=== PATIENT | male | born 1950 | race Caucasian/White ===

== ENCOUNTER 2020-12-19 16:20 | Outpatient (CLI) | payer OTHER | END 2020-12-19 16:21 | disposition short-term general hospital (02) | LOC: EMS 16:20 | DX: S89.91XA Unspecified injury of right lower leg, initial encounter (principal); W21.89XA Striking against or struck by other sports equipment, initial encounter; Y93.89 Activity, other specified; Y92.89 Other specified places as the place of occurrence of the external cause | CPT/HCPCS: A0425; A0427 ==

== ENCOUNTER 2022-01-25 16:58 | Outpatient (CLI) | payer OTHER ==
[2022-01-25 17:04] LABS: BASOPHILS # (AUTO) 0.1 10^3/uL (0.0-0.1); BASOPHILS % (AUTO) 1.2 %; EOSINOPHILS # (AUTO) 0.3 10^3/uL (0.0-0.7); EOSINOPHILS % (AUTO) 3.3 %; HCT - HEMATOCRIT 37.2 % (42.0-52.0); HGB - HEMOGLOBIN 11.7 g/dL (14.0-18.0); LYMPHOCYTES # (AUTO) 1.1 10^3/uL (1.5-3.5); LYMPHOCYTES % (AUTO) 13.7 %; MEAN CORPUSCULAR HEMOGLOBIN 29.3 pg (27.0-31.0); MEAN CORPUSCULAR HGB CONC 31.5 g/dL (32.0-36.0); MEAN PLATELET VOLUME 9.1 fL (7.4-11.4); MONOCYTES # (AUTO) 0.7 10^3/uL (0.0-1.0); NEUTROPHILS # (AUTO) 5.6 10^3/uL (1.5-6.6); NEUTROPHILS % (AUTO) 72.5 %; PLT - PLATELET COUNT 358 10^3/uL (130-450); RED CELL DISTRIBUTION WIDTH 14.2 % (12.0-15.0); WHITE BLOOD COUNT 7.7 x10^3/uL (4.8-10.8)
[2022-01-25 17:20] LABS: ALBUMIN 3.3 g/dL (3.2-5.5); BILIRUBIN,TOTAL 0.4 mg/dL (0.2-1.0); CALCIUM 9.1 mg/dL (8.5-10.3); CREATININE 0.8 mg/dL (0.6-1.2); POTASSIUM 4.6 mmol/L (3.5-5.0); TOTAL PROTEIN 6.7 g/dL (6.7-8.2)
== END 2022-01-25 23:59 | disposition home or self-care (01) ==
LOC: LAB.R 16:58
PROVIDERS: ATTEND Internal Medicine
DX: A40.9 Streptococcal sepsis, unspecified (principal)
CPT/HCPCS: 80053; 85025

== ENCOUNTER 2022-09-07 09:51 | Outpatient (CLI) | payer OTHER ==
--- NOTE | 2022-09-07 11:21 | Ultrasound Report ---
PROCEDURE: Duplex Ext Veins Left INDICATIONS: LEFT LEG EDEMA TECHNIQUE: Real-time imaging, as well as color and pulse Doppler interrogation, were performed of the lower extr emity deep veins from the inguinal ligament to the popliteal fossa. COMPARISON: None. FINDINGS: The deep veins are normally compressible, and free of intraluminal thrombus. Color and pu lse Doppler demonstrate normal phasic intraluminal flow. There is normal augmentation response to di stal compression maneuver. Complex suspected cystic structure measuring 5.8 x 3.9 cm in the popliteal region. IMPRESSION: Negative for DVT. Possible complex Zafar's cyst in the popliteal region, correlate with clinical exam and consider furt her evaluation with MRI if necessary. Differential includes a solid cystic mass. Reviewed by: Fabio Mercado MD on 09/07/2022 11:20 AM PDT Approved by: Fabio Mercado MD on 09/07/2022 11:20 AM PDT Station ID: [id number]
== END 2022-09-07 09:52 | disposition home or self-care (01) ==
LOC: DI 09:51
PROVIDERS: ATTEND Physician Assistant Medical
DX: R60.0 Localized edema (principal)